=== PATIENT | male | born 2000 | race Caucasian/White ===

== ENCOUNTER 2018-04-13 18:02 | Emergency (ER) | payer OTHER ==
[2018-04-13] MEDS: risperiDONE 2 MG TAB PO (19:48)
== END 2018-04-13 20:13 | disposition home or self-care (01) ==
LOC: M ED 18:02
DX: R03.0 Elevated blood-pressure reading, without diagnosis of hypertension (principal); Z76.0 Encounter for issue of repeat prescription; F84.0 Autistic disorder; Z79.899 Other long term (current) drug therapy
CPT/HCPCS: 99283